=== PATIENT | female | born 1960 | race Caucasian/White ===

== ENCOUNTER 2019-02-26 08:45 | Emergency (ER) | payer BC ==
[~2019-02-26] VITALS: Ht 162.6 cm; Wt 90.9 kg
[2019-02-26 09:05] VITALS: Ht 162.6 cm; Wt 90.9 kg
[2019-02-26] MEDS ORDERED: OMEPRAZOLE40 MG PO (09:06)
[2019-02-26] MEDS ORDERED: MAXALT10 MG PO (09:07)
[2019-02-26 10:09] LABS: BASOPHILS 0.1 % (0-2); EOSINOPHILS 0.1 % (0-7); HEMATOCRIT 46.7 % (36.0-48.0); HEMOGLOBIN 15.5 g/dL (12-16); IMMATURE GRANULOCYTES 0.2 % (0-5); LYMPHOCYTES 9.8 % (15-50); MCH 29.8 pg (26.0-34.0); MCHC 33.2 g/dL (31.0-37.0); MCV 89.8 fL (80.0-100.0); NEUTROPHILS 84.8 % (40-80); PLATELET COUNT 303 10x3/uL (130-400); RDW 13.7 % (11.5-14.5); WBC 12.6 10x3/uL (4.8-10.8)
[2019-02-26 10:19] LABS: CALC OSMOLALITY 286 mosm/kg (275-300); CALCIUM 9.4 mg/dL (8.5-10.1); CARBON DIOXIDE 29.1 mmol/L (21.0-32.0); CHLORIDE - SERUM 106 mmol/L (98-107); CREATININE - SERUM 0.6 mg/dL (0.6-1.3); GLUCOSE 116 mg/dL (74-106); POTASSIUM - SERUM 4.2 mmol/L (3.5-5.1); SODIUM 142 mmol/L (136-145); UREA NITROGEN 20 mg/dL (7-18); eGFR NON AFRICAN AMERICAN > 90 mL/min (90-120)
[2019-02-26 10:25] LABS: ALBUMIN 3.4 g/dL (3.4-5.0); ALKALINE PHOSPHATASE 114 U/L (46-116); ALT (SGPT) 46 U/L (10-68); BILIRUBIN - TOTAL 0.34 mg/dL (0.2-1.3); PROTEIN - SERUM 7.4 g/dL (6.4-8.2)
[2019-02-26] MEDS ORDERED: BUTALB-APAP-CA1 EACH PO (11:16)
[2019-02-26] MEDS ORDERED: MEDROL DOSE PACK4 MG PO (11:16)
[2019-02-26] MEDS ORDERED: KEFLEX500 MG PO (11:16)
[2019-02-26 12:08] VITALS: BP 126/74
== END 2019-02-26 12:05 | disposition home or self-care (01) ==
LOC: D.ER 08:45
PROVIDERS: Family Medicine
DX: J32.9 Chronic sinusitis, unspecified (principal); G43.909 Migraine, unspecified, not intractable, without status migrainosus